=== PATIENT | female | born 1990 | race Caucasian/White ===

== ENCOUNTER 2025-04-06 10:22 | Emergency (ER) | payer OTHER ==
[~2025-04-06] VITALS: Ht 180.3 cm; Wt 103.9 kg
[2025-04-06 10:38] VITALS: BP 136/69; TEMP 98.1
[2025-04-06] MEDS ORDERED: HYDR453.3 TP (10:55)
[2025-04-06] MEDS ORDERED: ALBU18HF2 INH (10:55)
[2025-04-06 11:07] VITALS: O2SAT 98
== END 2025-04-06 11:08 | disposition home or self-care (01) ==
LOC: ER 10:22
DX: R05.9 Cough, unspecified (principal); R09.81 Nasal congestion; R21 Rash and other nonspecific skin eruption; L50.9 Urticaria, unspecified

== ENCOUNTER 2025-04-15 10:17 | Emergency (ER) | payer OTHER ==
[~2025-04-15] VITALS: Ht 180.3 cm; Wt 95.3 kg
[~2025-04-15 10:17] MED LIST: ALBU18HF2 INH; HYDR453.3 TP
[2025-04-15] MEDS ORDERED: AMOX-430 PO (10:37)
[2025-04-15] MEDS ORDERED: DOXY100T2 PO (10:37)
[2025-04-15 10:38] VITALS: BP 119/77; TEMP 97.7; O2SAT 95
[2025-04-15] MEDS ORDERED: ALBU18HF2 INH (10:38)
== END 2025-04-15 10:46 | disposition home or self-care (01) ==
LOC: ER 10:19
DX: H66.92 Otitis media, unspecified, left ear (principal); J18.9 Pneumonia, unspecified organism; R05.9 Cough, unspecified; R09.81 Nasal congestion; Z79.899 Other long term (current) drug therapy